=== PATIENT | female | born 2005 ===

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

== ENCOUNTER 2023-04-03 22:57 | Emergency (ER) | payer MEDICAID ==
[2023-04-03] MEDS ORDERED: Sodium Chloride 0.9% 10 ML Syringe FLUSH PRN (23:15)
[2023-04-03] MEDS ORDERED: Sodium Chloride 0.9% 1,000 ML IV ONE (23:18)
[2023-04-03] MEDS ORDERED: Ondansetron 4 MG/2 ML SDV IVPUSH ONE ×2 (23:18→23:59)
[2023-04-03 23:22] LABS: BASOPHILS PERCENT AUTO 0.5 % (0.0-1.0); EOSINOPHILS PERCENT AUTO 0.2 % (1.0-3.0); HEMATOCRIT 34.6 % (37.0-47.0); HEMOGLOBIN 10.6 g/dL (12.0-16.0); LYMPHOCYTES PERCENT AUTO 13.1 % (20.5-50.1); MEAN CORPUSCULAR HEMOGLOBIN 21.9 pg (27.0-34.0); MEAN CORPUSCULAR HGB CONC 30.6 g/dL (33.0-35.0); MEAN CORPUSCULAR VOLUME 71.6 fL (80-100); MONOCYTES PERCENT AUTO 5.8 % (2-8); NEUTROPHILS PERCENT AUTO 80.4 % (42.2-75.2); PLATELET COUNT,PLT 384 10^3/uL (150-450); RED BLOOD CELL COUNT 4.83 10^6/uL (4.2-5.4); WHITE BLOOD CELL COUNT,WBC 11.6 10^3/uL (5.0-10.0)
[2023-04-03 23:38] LABS: A/G RATIO 1.2; ALBUMIN 4.4 g/dL (3.4-5.0); ANION GAP 14.7 mEq/L (7-13); BILIRUBIN TOTAL 0.6 mg/dL (0.2-1.0); BUN/CREATININE RATIO 10.4 (No establ ref range); CALCIUM 9.4 mg/dL (8.5-10.1); CREATININE 0.77 mg/dL (0.55-1.02); EST CRCL DRUG DOSING (CG) 122.81 mL/min; MAGNESIUM 1.8 mg/dL (1.8-2.4); POTASSIUM,K 3.7 mmol/L (3.5-5.1); PROTEIN TOTAL,TP 8.2 g/dL (6.4-8.2)
[2023-04-04 00:13] LABS: FERRITIN 6 mg/mL (8-252); IRON,FE 30 ug/dL (50-170)
[2023-04-04] MEDS ORDERED: Metoclopramide 10 MG/2 ML SDV IVPUSH ONE (00:22)
[2023-04-04] MEDS ORDERED: Metoclopramide 10 MG Tab ONE (00:32)
[2023-04-04] MEDS ORDERED: Metoclopramide 10 MG Tab PO ONE (00:35)
== END 2023-04-04 00:40 | disposition home or self-care (01) ==
LOC: DL.ED 22:57
DX: O21.9 Vomiting of pregnancy, unspecified (principal); Z3A.08 8 weeks gestation of pregnancy
CPT/HCPCS: 36415; 80053; 82728; 83540; 83550; 83735; 84702; 85025; 96361; 96374; 96375; 96376; 99283; 99284-25; A9270-GY; J2405; J2765; J3490; J7030

== ENCOUNTER 2023-06-01 14:05 | Emergency (ER) | payer MEDICAID ==
[2023-06-01] MEDS ORDERED: Sodium Chloride 0.9% 10 ML Syringe FLUSH PRN (14:13)
[2023-06-01 14:32] LABS: APPEARANCE,URINE CLOUDY (CLEAR); BILIRUBIN,URINE NEGATIVE (NEGATIVE); COLOR,URINE DARK YELLOW (YELLOW); GLUCOSE,URINE NEGATIVE (NEGATIVE); KETONES,URINE NEGATIVE (NEGATIVE); LEUKOCYTE ESTERASE,URINE LARGE (NEGATIVE); NITRITE,URINE NEGATIVE (NEGATIVE); OCCULT BLOOD,URINE LARGE (NEGATIVE); PROTEIN,URINE 100 (NEGATIVE); UROBILINOGEN,URINE 0.2 mg/dL (0.2-1.0)
[2023-06-01 14:45] LABS: EPITHELIAL CELLS,URINE OCCASIONAL /HPF (NOT SEEN)
[2023-06-01 14:50] LABS: BACTERIA,URINE FEW /HPF (0-FEW/HPF); RBC,URINE PACKED /HPF (0-5); WBC,URINE PACKED /HPF (0-5/HPF)
== END 2023-06-01 14:57 | disposition home or self-care (01) ==
LOC: DL.ED 14:05
DX: O23.32 Infections of other parts of urinary tract in pregnancy, second trimester (principal); N30.01 Acute cystitis with hematuria; Z3A.16 16 weeks gestation of pregnancy; Z37.9 Outcome of delivery, unspecified
CPT/HCPCS: 81001; 87086; 87088; 87186; 99283; 99284

== ENCOUNTER 2023-10-24 07:56 | Inpatient (IN) | payer MEDICAID ==
[2023-10-24] MEDS ORDERED: Misoprostol 25 MCG (1/4 of 100 MCG) Tab VAG PRN (08:00)
[2023-10-24] MEDS ORDERED: Methylergonovine 0.2 MG/1 ML Amp IM PRN (08:00)
[2023-10-24] MEDS ORDERED: Tranexamic Acid 1,000 MG in Sodium Chloride 0.9% 100 ML IV PRN (08:00)
[2023-10-24] MEDS ORDERED: Carboprost Tromethamine 250 MCG/1 ML Amp IM PRN (08:00)
[2023-10-24] MEDS ORDERED: fentaNYL 100 MCG/2 ML SDV IVPUSH PRN (08:00)
[2023-10-24] MEDS: Penicillin G Potassium 5 MILLUNITS in Sodium Chloride 0.9% 100 ML IV ONE (08:33)
[2023-10-24 08:44] LABS: HEMATOCRIT 41.3 % (37.0-47.0); HEMOGLOBIN 13.6 g/dL (12.0-16.0); MEAN CORPUSCULAR HEMOGLOBIN 28.9 pg (27.0-34.0); MEAN CORPUSCULAR HGB CONC 32.9 g/dL (33.0-35.0); MEAN CORPUSCULAR VOLUME 87.9 fL (80-100); RED BLOOD CELL COUNT 4.7 10^6/uL (4.2-5.4); WHITE BLOOD CELL COUNT,WBC 6.2 10^3/uL (5.0-10.0)
[2023-10-24] MEDS: Misoprostol 25 MCG (1/4 of 100 MCG) Tab VAG SCH (08:55)
[2023-10-24] MEDS: Penicillin G Potassium 3 MILLUNITS in Sodium Chloride 0.9% 100 ML IV SCH (12:18)
[2023-10-24] MEDS: Sodium Chloride 0.9% 10 ML Syringe FLUSH PRN (12:18)
[2023-10-24 14:38] LABS: CREATININE 0.99 mg/dL (0.55-1.02); EST CRCL DRUG DOSING (CG) 94.73 mL/min; URIC ACID 5.3 mg/dL (2.6-6.0)
[2023-10-24] MEDS: Lactated Ringers 1,000 ML IV ONE (15:06)
[2023-10-24] MEDS ORDERED: fentaNYL 100 MCG/2 ML SDV ONE (15:21)
[2023-10-24] MEDS ORDERED: Bupivacaine 0.25% 10 ML SDV ONE (15:21)
[2023-10-24 15:29] LABS: APPEARANCE,URINE CLEAR (CLEAR); BILIRUBIN,URINE NEGATIVE (NEGATIVE); COLOR,URINE YELLOW (YELLOW); GLUCOSE,URINE NEGATIVE (NEGATIVE); KETONES,URINE NEGATIVE (NEGATIVE); LEUKOCYTE ESTERASE,URINE NEGATIVE (NEGATIVE); NITRITE,URINE NEGATIVE (NEGATIVE); OCCULT BLOOD,URINE NEGATIVE (NEGATIVE); PH,URINE 7.5 (5.0-9.0); PROTEIN,URINE NEGATIVE (NEGATIVE); UROBILINOGEN,URINE 0.2 mg/dL (0.2-1.0)
[2023-10-24] MEDS ORDERED: Phenylephrine HCl In 0.9% NaCl 1 MG/10 ML Syringe IVPUSH PRN (15:41)
[2023-10-24] MEDS ORDERED: ePHEDrine 50 MG/ML SDV IVPUSH PRN (15:41)
[2023-10-24 15:42] LABS: CREATININE,URINE RAND 44.47 mg/dL (No establ ref range); PROTEIN,URINE RANDOM < 6.0 mg/dL (0.0-11.9)
[2023-10-24] MEDS: Lactated Ringers 1,000 ML IV SCH (15:43)
[2023-10-24] MEDS ORDERED: Ropivacaine 200 MG in Premix Bag 1 BAG EPIDUR SCH (15:45)
[2023-10-24] MEDS: Ondansetron 4 MG/2 ML SDV IVPUSH PRN (17:46)
[2023-10-24] MEDS: Oxytocin/Normal Saline 30 UNIT/500 ML BAG IV SCH (21:23)
[2023-10-24] MEDS: Misoprostol 400 MCG (4 X 100 MCG TAB) RECTAL PRN (21:27)
[2023-10-24] MEDS ORDERED: Simethicone 80 MG Tab.Chew PO PRN (21:42)
[2023-10-24] MEDS ORDERED: Hydrocortisone 2.5% Crm 30 GM Tube TOP PRN (21:42)
[2023-10-24] MEDS ORDERED: Sodium Chloride 0.9% 10 ML Syringe FLUSH PRN (21:42)
[2023-10-24] MEDS ORDERED: Oxytocin 10 Units/1 ML SDV IM PRN (21:42)
[2023-10-24] MEDS ORDERED: Benzocaine/Menthol 20%-0.5% Spray 78 GM Cannister TOP PRN (21:42)
[2023-10-24] MEDS ORDERED: Witch Hazel Medicated Pads 100/Jar TOP PRN (21:42)
[2023-10-25] MEDS: Ibuprofen 800 MG Tab PO PRN (00:30)
[2023-10-25] MEDS: Acetaminophen 325 MG Tab PO PRN (06:05)
[2023-10-25 06:23] LABS: HEMATOCRIT 37.5 % (37.0-47.0); HEMOGLOBIN 12.3 g/dL (12.0-16.0); MEAN CORPUSCULAR HGB CONC 32.8 g/dL (33.0-35.0); MEAN CORPUSCULAR VOLUME 88.4 fL (80-100); RED BLOOD CELL COUNT 4.24 10^6/uL (4.2-5.4)
[2023-10-25] MEDS: Prenatal Multivitamin with Calcium/Folic Acid/Iron Tab PO SCH (08:57)
[2023-10-25] MEDS: Docusate Sodium 100 MG Cap PO PRN (08:57)
[2023-10-25] MEDS: Lidocaine 1% 30 ML SDV INJECT ONE (10:19)
[2023-10-26] MEDS: Measles, Mumps & Rubella Vaccine 0.5 ML SDV SUBCUT ONE (08:51)
== END 2023-10-26 10:55 | disposition home or self-care (01) | DRG 807 ==
LOC: DL.OB 07:56 → OBSVTOIN 21:20
PROVIDERS: ADMIT Family Medicine; ATTEND Family Medicine
PROC: 10E0XZZ Delivery of Products of Conception, External Approach (ICD-10-PCS; principal; 2023-10-24)
PROC: 0KQM0ZZ Repair Perineum Muscle, Open Approach (ICD-10-PCS; 2023-10-24)
PROC: 10907ZC Drainage of Amniotic Fluid, Therapeutic from Products of Conception, Via Natural or Artificial Opening (ICD-10-PCS; 2023-10-24)
PROC: 3E0DXGC Introduction of Other Therapeutic Substance into Mouth and Pharynx, External Approach (ICD-10-PCS; 2023-10-24)
PROC: 3E033VJ Introduction of Other Hormone into Peripheral Vein, Percutaneous Approach (ICD-10-PCS; 2023-10-24)
PROC: 3E0R3BZ Introduction of Anesthetic Agent into Spinal Canal, Percutaneous Approach (ICD-10-PCS; 2023-10-24)
PROC: 00HU33Z Insertion of Infusion Device into Spinal Canal, Percutaneous Approach (ICD-10-PCS; 2023-10-24)
DX: O26.643 Intrahepatic cholestasis of pregnancy, third trimester (principal); Z37.0 Single live birth; E78.79 Other disorders of bile acid and cholesterol metabolism; K76.89 Other specified diseases of liver; O99.824 Streptococcus B carrier state complicating childbirth; O13.4 Gestational [pregnancy-induced] hypertension without significant proteinuria, complicating childbirth; O69.81X0 Labor and delivery complicated by cord around neck, without compression, not applicable or unspecified; O70.0 First degree perineal laceration during delivery; O62.2 Other uterine inertia; Z3A.37 37 weeks gestation of pregnancy; Z28.39 Other underimmunization status
CPT/HCPCS: 01967; 36415; 51701; 51702; 59025; 59409; 81003; 82565; 82570; 83615; 84156; 84450; 84460; 84520; 84550; 85027; 90471; 90707; A9270-GY; C1729; J2405; J2540; J2590; J3490; J7120

== ENCOUNTER 2023-12-05 01:34 | Emergency (ER) | payer MEDICAID ==
[2023-12-05 02:10] LABS: APPEARANCE,URINE CLEAR (CLEAR); BILIRUBIN,URINE NEGATIVE (NEGATIVE); COLOR,URINE YELLOW (YELLOW); GLUCOSE,URINE NEGATIVE (NEGATIVE); KETONES,URINE NEGATIVE (NEGATIVE); LEUKOCYTE ESTERASE,URINE SMALL (NEGATIVE); NITRITE,URINE NEGATIVE (NEGATIVE); OCCULT BLOOD,URINE NEGATIVE (NEGATIVE); PH,URINE 5.5 (5.0-9.0); PROTEIN,URINE NEGATIVE (NEGATIVE); UROBILINOGEN,URINE 0.2 mg/dL (0.2-1.0)
[2023-12-05 02:20] LABS: AMORPHOUS SEDIMENT,URINE FEW /HPF (NOT SEEN); BACTERIA,URINE FEW /HPF (0-FEW/HPF); EPITHELIAL CELLS,URINE MODERATE /HPF (NOT SEEN); MUCUS,URINE MODERATE /LPF (NOT SEEN); RBC,URINE 0-5 /HPF (0-5)
[2023-12-05 02:32] LABS: BASOPHILS PERCENT AUTO 0.8 % (0.0-1.0); EOSINOPHILS PERCENT AUTO 3.4 % (1.0-3.0); HEMATOCRIT 40.1 % (37.0-47.0); HEMOGLOBIN 12.6 g/dL (12.0-16.0); LYMPHOCYTES PERCENT AUTO 27.5 % (20.5-50.1); MEAN CORPUSCULAR HEMOGLOBIN 28.9 pg (27.0-34.0); MEAN CORPUSCULAR HGB CONC 31.4 g/dL (33.0-35.0); MONOCYTES PERCENT AUTO 6.7 % (2-8); NEUTROPHILS PERCENT AUTO 61.6 % (42.2-75.2); PLATELET COUNT,PLT 267 10^3/uL (150-450); RED BLOOD CELL COUNT 4.36 10^6/uL (4.2-5.4); WHITE BLOOD CELL COUNT,WBC 7.3 10^3/uL (5.0-10.0)
[2023-12-05 02:52] LABS: ALBUMIN 3.3 g/dL (3.4-5.0); ANION GAP 11.7 mEq/L (7-13); BILIRUBIN TOTAL 0.5 mg/dL (0.2-1.0); CALCIUM 8.8 mg/dL (8.5-10.1); CREATININE 0.81 mg/dL (0.55-1.02); EST CRCL DRUG DOSING (CG) 115.78 mL/min; MAGNESIUM 1.7 mg/dL (1.8-2.4); POTASSIUM,K 3.7 mmol/L (3.5-5.1); PROTEIN TOTAL,TP 6.6 g/dL (6.4-8.2)
[2023-12-05] MEDS: Sodium Chloride 0.9% 10 ML Syringe FLUSH PRN (02:57)
[2023-12-05] MEDS: Iopamidol 612 MG/ML 100 ML Bottle IVPUSH ONE (03:06)
== END 2023-12-05 04:58 | disposition home or self-care (01) ==
LOC: DL.ED 01:34
DX: R10.84 Generalized abdominal pain (principal); Z79.899 Other long term (current) drug therapy
CPT/HCPCS: 36415; 74177; 80053; 81001; 81025; 83690; 83735; 85025; 99284; Q9967; J3490

== ENCOUNTER 2025-04-27 05:11 | Emergency (ER) | payer MEDICAID, OTHER ==
[2025-04-27] MEDS: Ketorolac 30 MG/ML SDV IM ONE (06:16)
== END 2025-04-27 07:11 | disposition home or self-care (01) ==
LOC: DL.ED 05:11
DX: F10.120 Alcohol abuse with intoxication, uncomplicated (principal); F17.210 Nicotine dependence, cigarettes, uncomplicated; Z86.16 Personal history of COVID-19; Z79.899 Other long term (current) drug therapy; V24.5 Motorcycle passenger injured in collision with heavy transport vehicle or bus in traffic accident
CPT/HCPCS: 71046; 96372; 99283; 99284; J1885